=== PATIENT | female | born 1985 | race American Indian/Alaskan Native ===

== ENCOUNTER 2017-08-13 13:50 | Inpatient (IN) | payer OTHER ==
[~2017-08-13] VITALS: Ht 170.2 cm; Wt 72.6 kg
[~2017-08-13 13:50] MED LIST: CATAFLAM50 MG PO; DICLEGIS DR 101 EACH; EXCEDRIN MIGRAI1 TAB PO; FIORICET 50-321 EACH PO
[2017-08-17] MEDS ORDERED: HYDROXYZINE PAM50 MG PO (17:42)
[2017-08-17] MEDS ORDERED: NIFEDIPINE ER30 MG PO (17:42)
== END 2017-08-17 18:21 | disposition home or self-care (01) | DRG 778 ==
LOC: LDR 13:50 → OB/GYN 13:50
PROC: 4A1HXCZ Monitoring of Products of Conception, Cardiac Rate, External Approach (ICD-10-PCS; principal; 2017-08-13)
PROC: BY4GZZZ Ultrasonography of Third Trimester, Multiple Gestation (ICD-10-PCS; 2017-08-13)
PROC: BU4CZZZ Ultrasonography of Uterus and Ovaries (ICD-10-PCS; 2017-08-13)
DX: O60.03 Preterm labor without delivery, third trimester (principal); Z3A.30 30 weeks gestation of pregnancy

== ENCOUNTER 2017-08-19 00:14 | Inpatient (IN) | payer OTHER ==
[~2017-08-19] VITALS: Ht 170.2 cm; Wt 70.8 kg
[~2017-08-19 00:14] MED LIST changes: +HYDROXYZINE PAM50 MG PO; +NIFEDIPINE ER30 MG PO
[2017-08-19] MEDS ORDERED: NIFE60TA3 (00:31)
[2017-08-19] MEDS ORDERED: VISTARIL50 MG (00:31)
[2017-08-19] MEDS ORDERED: NIFE60TA3 PO (09:23)
[2017-08-19] MEDS ORDERED: VISTARIL50 MG PO (09:24)
== END 2017-08-25 10:37 | DRG 781 ==
LOC: ER 00:14 → LDR 08:17 → OB/GYN 08:17
PROC: 4A033R1 Measurement of Arterial Saturation, Peripheral, Percutaneous Approach (ICD-10-PCS; principal; 2017-08-19)
PROC: B34HZZZ Ultrasonography of Right Upper Extremity Arteries (ICD-10-PCS; 2017-08-19)
PROC: 4A1HXCZ Monitoring of Products of Conception, Cardiac Rate, External Approach (ICD-10-PCS; 2017-08-19)
DX: O26.893 Other specified pregnancy related conditions, third trimester (principal); L03.113 Cellulitis of right upper limb; T80.89XA Other complications following infusion, transfusion and therapeutic injection, initial encounter; O60.03 Preterm labor without delivery, third trimester; Z3A.30 30 weeks gestation of pregnancy

== ENCOUNTER 2017-09-25 11:54 | Inpatient (IN) | payer OTHER ==
[~2017-09-25] VITALS: Ht 167.6 cm; Wt 74.4 kg
[~2017-09-25 11:54] MED LIST changes: +NIFE60TA3; +NIFE60TA3 PO; +VISTARIL50 MG; +VISTARIL50 MG PO
[2017-10-05] MEDS ORDERED: PRENATAL 19 TA1 EACH PO (07:25)
== END 2017-10-07 11:54 | DRG 775 ==
LOC: LDR 10-05 05:03 → OB/GYN 10-05 05:33 → LDR 10-05 11:07 → OB/GYN 10-05 18:01
PROC: 0HQ9XZZ Repair Perineum Skin, External Approach (ICD-10-PCS; principal; 2017-10-05)
PROC: 10E0XZZ Delivery of Products of Conception, External Approach (ICD-10-PCS; 2017-10-05)
PROC: 4A1HXCZ Monitoring of Products of Conception, Cardiac Rate, External Approach (ICD-10-PCS; 2017-10-05)
PROC: 4A033R1 Measurement of Arterial Saturation, Peripheral, Percutaneous Approach (ICD-10-PCS; 2017-10-05)
DX: O70.0 First degree perineal laceration during delivery (principal); Z3A.38 38 weeks gestation of pregnancy; Z37.0 Single live birth

== ENCOUNTER 2017-11-23 06:00 | Day surgery (SDC) | payer OTHER ==
[~2017-11-23 06:00] MED LIST changes: +PRENATAL 19 TA1 EACH PO
== END 2017-11-23 17:25 | disposition home or self-care (01) ==
LOC: CIR.AMB 06:00
DX: Z30.2 Encounter for sterilization (principal)